=== PATIENT | male | born 1965 | race Caucasian/White ===

== ENCOUNTER 2019-10-06 09:09 | Emergency (ER) | payer BC, OTHER ==
[~2019-10-06] VITALS: Ht 172 cm; Wt 79.5 kg
[~2019-10-06 09:09] MED LIST: TRIA1CAP
[2019-10-06] MEDS ORDERED: KETOROLAC 30 MG/ML VIAL IVP STA (09:16)
[2019-10-06] MEDS ORDERED: LACTATED RINGERS 1,000 ML IV ONE (09:16)
[2019-10-06] MEDS ORDERED: ONDANSETRON 4 MG/2 ML (SDV) Z0FRAN ONE (09:17)
--- NOTE | 2019-10-06 09:26 | ED GU-Male ---
General Stated Complaint: L SIDE PAIN Source: patient History of Present Illness Date Seen by Provider: Oct 06, 2019 Time Seen by Provider: 09:15 Initial Comments PT ARRIVES VIA POV FROM HOME C/O LEFT FLANK AND LLQ PAIN SINCE 199 THIS AM HAS HISTORY OF KIDNEY STONES AND THIS FEELS THE SAME. HAD 1 REMOVED BY STONE BASKET, HAS PASSED ALL OTHERS ON HIS OWN HAS BEEN ON MAXZIDE SINCE 1997 LAST VOID WAS AT 0600, HAD LLQ PAIN ON URINATING NO FEVER + NAUSEA, NO VOMITING HAS NOT TAKEN ANYTHING FOR PAIN PCP: PT IS NON GARMENT SEWING MACHINE OPERATOR AT [employer] UROLOGIST: DR. DAVIS Allergies and Home Medications Allergies Coded Allergies: Ibuprofen (Unverified Allergy, Mild, 12/03/08) Penicillins (Unverified Allergy, Mild, 12/03/08) Home Medications Ciprofloxacin HCl 500 Mg Tablet, 500 MG PO BID Prescribed by: LARRY GARZA on 10/06/19 110 Ketorolac Tromethamine 10 Mg Tablet, 10 MG PO Q6H Prescribed by: LARRY GARZA on 10/06/19 110 Ondansetron 8 Mg Tab.rapdis, 8 MG PO Q6H Prescribed by: LARRY GARZA on 10/06/19 110 Tamsulosin HCl 0.4 Mg Cap, 0.4 MG PO DAILY Prescribed by: LARRY GARZA on 10/06/19 110 Patient Home Medication List Home Medication List Reviewed: Yes Review of Systems Review of Systems Constitutional: no symptoms reported Respiratory: no symptoms reported Cardiovascular: no symptoms reported Gastrointestinal: see HPI, abdominal pain Genitourinary: see HPI, flank pain Musculoskeletal: see HPI, back pain Skin: no symptoms reported Psychiatric/Neurological: No Symptoms Reported Endocrine: No Symptoms Reported Hematologic/Lymphatic: No Symptoms Reported Past Yjevtqv-Virkxx-Xyivsv Hx Past Med/Social Hx: Reviewed and Corrections made Patient Social History Recent Foreign Travel: No Past Medical History Surgeries: Yes (KINDEY STONE BASKET REMOVAL) Renal Respiratory: No Cardiac: Yes High Cholesterol Neurological: No Genitourinary: Yes Kidney Stones Gastrointestinal: No Musculoskeletal: No Endocrine: No HEENT: No Cancer: No Psychosocial: Yes Anxiety Integumentary: No Blood Disorders: No Physical Exam Vital Signs Vital Signs - First Documented 10/06/19 09:10 Pulse 79 Resp 16 B/P (MAP) 148/98 (115) Pulse Ox 98 O2 Delivery Room Air Capillary Refill : Height, Weight, BMI Height: '" Weight: lbs. oz. kg; BMI Method: General Appearance: WD/WN, other (LOOKS UNCOMFORTABLE--UNABLE TO SIT OR LAY STILL. ) Cardiovascular: regular rate, rhythm, no murmur Respiratory: normal breath sounds Gastrointestinal: normal bowel sounds, non tender, soft, no organomegaly Back: CVA tenderness (L) Extremities: normal inspection Neurologic/Psychiatric: no motor/sensory deficits, alert, oriented x 3 Skin: normal color, warm/dry; No rash Progress/Results/Core Measures Suspected Sepsis SIRS Temperature: Pulse: Respiratory Rate: Laboratory Tests 10/06/19 09:17: White Blood Count 12.7H Blood Pressure / Mean: Laboratory Tests 10/06/19 09:17: Creatinine 1.32H, Platelet Count 331, Total Bilirubin 0.6 Results/Orders Lab Results Laboratory Tests Test 10/06/19 09:17 10/06/19 10:00 Range/Units White Blood Count 12.7 H 4.3-11.0 10^3/uL Red Blood Count 5.66 4.35-5.85 10^6/uL Hemoglobin 16.4 13.3-17.7 G/DL Hematocrit 49 40-54 % Mean Corpuscular Volume 86 80-99 FL Mean Corpuscular Hemoglobin 29 25-34 PG Mean Corpuscular Hemoglobin Concent 34 32-36 G/DL Red Cell Distribution Width 14.9 H 10.0-14.5 % Platelet Count 331 130-400 10^3/uL Mean Platelet Volume 9.7 7.4-10.4 FL Neutrophils (%) (Auto) 64 42-75 % Lymphocytes (%) (Auto) 24 12-44 % Monocytes (%) (Auto) 10 0-12 % Eosinophils (%) (Auto) 1 0-10 % Basophils (%) (Auto) 0 0-10 % Neutrophils # (Auto) 8.2 H 1.8-7.8 X 10^3 Lymphocytes # (Auto) 3.1 1.0-4.0 X 10^3 Monocytes # (Auto) 1.3 H 0.0-1.0 X 10^3 Eosinophils # (Auto) 0.1 0.0-0.3 10^3/uL Basophils # (Auto) 0.0 0.0-0.1 10^3/uL Sodium Level 141 135-145 MMOL/L Potassium Level 3.8 3.6-5.0 MMOL/L Chloride Level 106 98-107 MMOL/L Carbon Dioxide Level 23 21-32 MMOL/L Anion Gap 12 5-14 MMOL/L Blood Urea Nitrogen 17 7-18 MG/DL Creatinine 1.32 H 0.60-1.30 MG/DL Estimat Glomerular Filtration Rate 56 BUN/Creatinine Ratio 13 Glucose Level 131 H 70-105 MG/DL Calcium Level 9.4 8.5-10.1 MG/DL Corrected Calcium 9.2 8.5-10.1 MG/DL Total Bilirubin 0.6 0.1-1.0 MG/DL Aspartate Amino Transf (AST/SGOT) 31 5-34 U/L Alanine Aminotransferase (ALT/SGPT) 66 H 0-55 U/L Alkaline Phosphatase 90 40-136 U/L Total Protein 7.3 6.4-8.2 GM/DL Albumin 4.3 3.2-4.5 GM/DL Urine Color YELLOW Urine Clarity CLEAR Urine pH 6.0 5-9 Urine Specific [place] 1.020 1.016-1.022 Urine Protein NEGATIVE NEGATIVE Urine Glucose (UA) NEGATIVE NEGATIVE Urine Ketones NEGATIVE NEGATIVE Urine Nitrite NEGATIVE NEGATIVE Urine Bilirubin NEGATIVE NEGATIVE Urine Urobilinogen 0.2 < = 1.0 MG/DL Urine Leukocyte Esterase NEGATIVE NEGATIVE Urine RBC (Auto) 1+ H NEGATIVE Urine RBC RARE /HPF Urine WBC 0-2 /HPF Urine Crystals NONE /LPF Urine Bacteria TRACE /HPF Urine Casts NONE /LPF Urine Mucus NEGATIVE /LPF Urine Culture Indicated NO My Orders Orders - LARRY GARZA DO Ed Iv/Invasive Line Start (10/06/19 09:16) Ct Abd/Pelvis Wo(Kidney Stone) (10/06/19 09:16) Abdomen/Kub 1view (10/06/19 09:16) Cbc With Automated Diff (10/06/19 09:16) Comprehensive Metabolic Panel (10/06/19 09:16) Ua Culture If Indicated (10/06/19 09:16) Ed Iv/Invasive Line Start (10/06/19 09:16) Lactated Ringers (Lr 1000 Ml Iv Solution (10/06/19 09:16) Ketorolac Injection (Toradol Injection) (10/06/19 09:16) Ondansetron Injection (Zofran Injectio (10/06/19 09:30) Ondansetron Injection (Zofran Injectio (10/06/19 09:17) Medications Given in ED Current Medications Medications Dose Ordered Sig/Jesus Route Start Time Stop Time Status Last Admin Dose Admin Lactated Ringer's 1,000 ml @ 0 mls/hr Q0M ONCE IV 10/06/19 09:16 10/06/19 09:18 DC 10/06/19 09:27 1,000 MLS/HR Ondansetron HCl 8 mg ONCE ONCE IVP 10/06/19 09:30 10/06/19 09:31 DC 10/06/19 09:25 8 MG Vital Signs/I&O 10/06/19 09:10 Pulse 79 Resp 16 B/P (MAP) 148/98 (115) Pulse Ox 98 O2 Delivery Room Air Capillary Refill : Progress Note : Progress Note SYMPTOMS COMPLETELY RELIEVED WITH TORADOL AND ZOFRAN DECLINES RX FOR HYDROCODONE, ETC. Diagnostic Imaging Comments KUB--2X10 MM CALCIFICATION TO LEFT OF L4, PER RADIOLOGIST REPORT AT 1043 CT ABDOMEN/PELVIS--4 MM STONE LEFT MID URETER, WITH MILD LEFT HYDRONEPHROSIS, PER RADIOLOGIST REPORT AT 1100 Reviewed: Reviewed by Me Departure Impression Primary Impression: Left ureteral calculus Disposition: HOME, SELF-CARE Condition: Improved Departure-Patient Inst. Referrals: NO,LOCAL PHYSICIAN (PCP) Primary Care Physician KATHERIN DAVIS MD Patient Instructions: Kidney Stones (DC) Add. Discharge Instructions: STRAIN ALL URINE--RETURN ANY STONES TO DR. DAVIS'S OFFICE RETURN TO ER IF SYMPTOMS WORSEN FOLLOW UP WITH DR. DAVIS ON TUESDAY FOR FURTHER CARE Scripts Tamsulosin HCl (Flomax) 0.4 Mg Cap 0.4 MG PO DAILY, #10 CAP Prov: KAYLA,LARRY K DO 10/06/19 Ondansetron (Ondansetron Odt) 8 Mg Tab.rapdis 8 MG PO Q6H for Nausea/Vomiting, #10 TAB Prov: KAYLA,LARRY K DO 10/06/19 Ketorolac Tromethamine (Ketorolac Tromethamine) 10 Mg Tablet 10 MG PO Q6H for Pain, #15 TAB Prov: KAYLA,LARRY K DO 10/06/19 Ciprofloxacin HCl (Cipro) 500 Mg Tablet 500 MG PO BID, #20 TAB Prov: LARRY GARZA DO 10/06/19 LARRY GARZA DO Oct 06, 2019 09:26
[2019-10-06] MEDS ORDERED: ONDANSETRON 4 MG/2 ML (SDV) Z0FRAN IVP ONE (09:30)
[2019-10-06 09:38] LABS: BASOPHILS % (AUTO) 0 % (0-10); EOSINOPHILS # (AUTO) 0.1 10^3/uL (0.0-0.3); EOSINOPHILS % (AUTO) 1 % (0-10); HEMATOCRIT 49 % (40-54); HEMOGLOBIN 16.4 G/DL (13.3-17.7); LYMPHOCYTES # (AUTO) 3.1 X 10^3 (1.0-4.0); LYMPHOCYTES % (AUTO) 24 % (12-44); MEAN CORPUSCULAR HEMOGLOBIN 29 PG (25-34); MEAN CORPUSCULAR HGB CONC 34 G/DL (32-36); MEAN CORPUSCULAR VOLUME 86 FL (80-99); MEAN PLATELET VOLUME 9.7 FL (7.4-10.4); MONOCYTES # (AUTO) 1.3 X 10^3 (0.0-1.0); MONOCYTES % (AUTO) 10 % (0-12); NEUTROPHILS # (AUTO) 8.2 X 10^3 (1.8-7.8); NEUTROPHILS % (AUTO) 64 % (42-75); PLATELET COUNT 331 10^3/uL (130-400); RED CELL DISTRIBUTION WIDTH 14.9 % (10.0-14.5); WHITE BLOOD COUNT 12.7 10^3/uL (4.3-11.0)
--- NOTE | 2019-10-06 09:38 | NUR ---
DR IN WITH PT ET STATES HE IS FEELING BETTER AFTER THE TORADOL.
[2019-10-06 09:45] LABS: ALBUMIN 4.3 GM/DL (3.2-4.5); BILIRUBIN,TOTAL 0.6 MG/DL (0.1-1.0); CALCIUM 9.4 MG/DL (8.5-10.1); CREATININE SERUM 1.32 MG/DL (0.60-1.30); POTASSIUM 3.8 MMOL/L (3.6-5.0); TOTAL PROTEIN 7.3 GM/DL (6.4-8.2)
[2019-10-06 10:15] LABS: BILIRUBIN,URINE NEGATIVE (NEGATIVE); CLARITY,URINE CLEAR; COLOR,URINE YELLOW; GLUCOSE, URINE (UA) NEGATIVE (NEGATIVE); KETONES,URINE NEGATIVE (NEGATIVE); LEUKOCYTE ESTERASE ,URINE NEGATIVE (NEGATIVE); NITRITE,URINE NEGATIVE (NEGATIVE); PROTEIN,URINE NEGATIVE (NEGATIVE)
[2019-10-06 10:22] LABS: BACTERIA,URINE TRACE /HPF; RBC,URINE RARE /HPF; WBC,URINE 0-2 /HPF
--- NOTE | 2019-10-06 10:28 | Diagnostic Imaging Report ---
INDICATION: Left flank pain A supine view of the abdomen was performed. The diaphragms were not visualized on this study. The bowel gas pattern is within normal limits. There is a 2 x 10 mm calcific density seen adjacent to the transverse process of L4 on the left. Does not have a typical appearance of a calculus but one cannot totally be excluded. No other urinary tract calcifications are evident. There are calcifications in the pelvis consistent with phleboliths. There is no acute bony abnormality. IMPRESSION: There is a 2 x 10 mm calcification adjacent to the transverse process of L4 on the left. If pain persists and further evaluation is felt necessary, CT may be helpful. Dictated by: Dictated on workstation # [id number]
--- NOTE | 2019-10-06 10:40 | NUR ---
PT STATES HE IS FEELING BETTER. DENIES NEEDS AT THIS TIME.
--- NOTE | 2019-10-06 10:55 | Diagnostic Imaging Report ---
PROCEDURE: CT urinary tract, rule out kidney stone. TECHNIQUE: Multiple contiguous axial images were obtained through the abdomen and pelvis without the use of intravenous contrast. Auto Exposure Controls were utilized during the CT exam to meet ALARA standards for radiation dose reduction. INDICATION: Left flank pain. COMPARISON: 12/03/2008. DISCUSSION: The lung bases are unremarkable. Normal heart size. No pleural or pericardial fluid. The gallbladder, liver, stomach, pancreas, spleen, and adrenal glands are unremarkable. Chronic induration of the central mesenteric root where shotty-appearing adenopathy is stable and consistent with a chronic inflammatory process, typically incidental. There is no renal stone or hydronephrosis within the right kidney. There is a 4 mm stone within the mid left ureter contributing to mild left hydronephrosis. Bladder and prostate are unremarkable. The large and small bowel loops appear within normal limits. No evidence for appendicitis. The aorta is normal in caliber. No ascites. No acute osseous abnormality identified. IMPRESSION: 1. 4 mm stone within the mid left ureter with mild left hydronephrosis. Dictated by: Dictated on workstation # [id number]
--- NOTE | 2019-10-06 11:00 | NUR ---
IN ROOM AT THIS TIME.
[2019-10-06] MEDS ORDERED: KETO10TA PO (11:05)
[2019-10-06] MEDS ORDERED: TMSL.4C PO (11:05)
[2019-10-06] MEDS ORDERED: CIPR-225 PO (11:05)
[2019-10-06] MEDS ORDERED: ONDA8TAB13 PO (11:05)
[2019-10-06 11:10] VITALS: BP 148/98
== END 2019-10-06 11:10 | disposition home or self-care (01) ==
LOC: EDUNIT# 09:09 → ER 09:10
DX: N13.2 Hydronephrosis with renal and ureteral calculous obstruction (principal); Z88.6 Allergy status to analgesic agent; Z88.0 Allergy status to penicillin
CPT/HCPCS: 36415; 74018; 74176; 80053; 81000; 85025; 96361; 96374; 96375

== ENCOUNTER 2019-10-08 15:08 | Outpatient (CLI) | payer OTHER ==
[~2019-10-08] VITALS: Ht 172 cm; Wt 79.5 kg
[~2019-10-08 15:08] MED LIST changes: -ATOR20TA66 PO; -FLUO40CA PO; -NITR-65 PO; -TRIA1CAP4 PO; -TRM50T PO
[2019-10-08] MEDS ORDERED: ATOR20TA66 PO (15:20)
[2019-10-08] MEDS ORDERED: FLUO40CA PO (15:20)
[2019-10-08] MEDS ORDERED: TRIA1CAP4 PO (15:20)
[2019-10-09] MEDS ORDERED: NITR-65 PO (11:40)
[2019-10-09] MEDS ORDERED: TRM50T PO (11:40)
== END 2019-10-08 15:46 | disposition home or self-care (01) ==
LOC: PREOP 15:08
PROVIDERS: ATTEND Urology
DX: Z01.818 Encounter for other preprocedural examination (principal)

== ENCOUNTER → 2019-10-08 | Outpatient (CLI) | payer OTHER ==
[~2019-10-08] MED LIST changes: +ATOR20TA66 PO; +CIPR-225 PO; +FLUO40CA PO; +KETO10TA PO; +NITR-65 PO; +ONDA8TAB13 PO; +TMSL.4C PO; +TRIA1CAP4 PO; +TRM50T PO
--- NOTE | 2019-10-08 13:48 | Diagnostic Imaging Report ---
INDICATION: Ureteral stone. FINDINGS: Note is again made of calcification adjacent to the left L4 transverse process. This is essentially unchanged when compared to the prior exam. This again measures 2 x 10 mm. IMPRESSION: Unchanged mid left ureteral stone. Dictated by: Dictated on workstation # [id number]
== END ==
LOC: RAD 13:31
PROVIDERS: ATTEND Urology
DX: N20.1 Calculus of ureter (principal)
CPT/HCPCS: 74018

== ENCOUNTER 2019-10-09 07:23 | Day surgery (SDC) | payer OTHER ==
[2019-10-09] VITALS (9 sets, daily range): BP systolic 104–145; BP diastolic 74–100
[~2019-10-09] VITALS: Ht 172 cm; Wt 79.5 kg
[~2019-10-09 07:23] MED LIST changes: +ATOR20TA66 PO; +FLUO40CA PO; +TRIA1CAP4 PO
[2019-10-09] MEDS ORDERED: LEVOFLOXACIN 250 MG/50 ML IVPB 50 ML IV ONE (07:45)
--- NOTE | 2019-10-09 07:56 | Progress Note-Pre Operative ---
Pre-Operative Progress Note H&P Reviewed The H&P was reviewed, patient examined and no changes noted. Date Seen by Provider: Oct 09, 2019 Time Seen by Provider: 07:56 Date H&P Reviewed: Oct 09, 2019 Time H&P Reviewed: 07:56 Pre-Operative Diagnosis: LT PROXIMAL URETERAL STONE KATHERIN DAVIS MD Oct 09, 2019 07:56
--- NOTE | 2019-10-09 07:58 | Diagnostic Imaging Report ---
INDICATION: Pre-ESWL, left ureteral stone. Compared with radiograph one day prior. FINDINGS: An elongated stone along the course of the left ureter measures a length of 9.7 mm and is between the 3rd and 4th lumbar left-sided transverse process tips. Pelvic phleboliths unchanged. The bowel gas pattern normal. IMPRESSION: Left ureteral calculus positioned as described unchanged from prior. Dictated by: Dictated on workstation # [id number]
[2019-10-09] MEDS ORDERED: LACTATED RINGERS 1,000 ML IV PRN (08:06)
[2019-10-09] MEDS ORDERED: MIDAZOLAM 2 MG/2 ML (VERSED) VIAL ONE (09:23)
[2019-10-09] MEDS ORDERED: fentaNYL INJECTION 100 MCG/2 ML AMP ONE (09:23)
[2019-10-09] MEDS ORDERED: LIDOCAINE PF 2% 5 ML (XYLOCAINE) VIAL ONE (09:26)
[2019-10-09] MEDS ORDERED: FUROSEMIDE 40 MG/4 ML INJ (LASIX) ONE (09:26)
[2019-10-09] MEDS ORDERED: proPOfol 200 MG/20 ML (DIPRIVAN) VIAL IV ONE (09:26)
[2019-10-09] MEDS ORDERED: SEVOFLURANE (ULTANE) 15 ML INHAL SOLN ONE ×3 (09:26→10:13)
[2019-10-09] MEDS ORDERED: KETOROLAC 30 MG/ML VIAL ONE (09:26)
[2019-10-09] MEDS ORDERED: ONDANSETRON 4 MG/2 ML (SDV) Z0FRAN ONE (09:26)
--- NOTE | 2019-10-09 09:56 | Progress Note-Post Operative ---
Post-Operative Progess Note Surgeon (s)/Automatic Presser (s) Surgeon KATHERIN DAVIS MD Automatic Presser: NONE Pre-Operative Diagnosis LT PROXIMAL URETERAL STONE Post-Operative Diagnosis SAME Procedure & Operative Findings Date of Procedure 10/09/19 Procedure Performed/Findings LT ESWL Anesthesia Type GENERAL Estimated Blood Loss Estimated blood loss (mL): NONE Specimens/Packing Specimens Removed NONE Packing: NONE KATHERIN DAVIS MD Oct 09, 2019 09:56
--- NOTE | 2019-10-09 09:59 | Discharge Inst-Urology ---
Discharge Inst-Urology Reconcile Patient Problems Problems Reviewed?: Yes Final Diagnosis LT PROXIMAL URETERAL STONE Patient Instructions/Follow Up Plan/Assessment/Instructions Please make appointment to been seen in office Sunday 10/22, KUB prior to it KUB on way home Post ESWL instructions Increase oral fluids for 48 hours and then as needed. Diet and Activity as tolerated. If questions or concerns contact your physician Or seek help at emergency department. KATHERIN DAVIS MD Oct 09, 2019 09:59
--- NOTE | 2019-10-09 10:29 | Anesthesia-General Post-Op ---
General Patient Condition Mental Status/LOC: Same as Preop Cardiovascular: Satisfactory Nausea/Vomiting: Absent Respiratory: Satisfactory Pain: Controlled Complications: Absent Post Op Complications Complications None Follow Up Care/Instructions Patient Instructions None needed. Anesthesia/Patient Condition Patient Condition Patient is doing well, no complaints, stable vital signs, no apparent adverse anesthesia problems. No complications reported per nursing. RODDY CERNA CRNA Oct 09, 2019 10:29
[2019-10-09] MEDS ORDERED: ONDANSETRON 4 MG/2 ML (SDV) Z0FRAN IVP PRN (10:30)
[2019-10-09] MEDS ORDERED: morphine INJ 10 MG/ML 1ML (SYR OR VIAL) IVP ONE (10:30)
[2019-10-09] MEDS ORDERED: NITR-65 PO (11:40)
[2019-10-09] MEDS ORDERED: TRM50T PO (11:40)
--- NOTE | 2019-10-09 12:42 | Diagnostic Imaging Report ---
INDICATION: Ureteral stone. Comparison is made with prior examination earlier the same day. FINDINGS: There are two persistent stone fragments in the region of the proximal left ureter just above the left L4 transverse process. Bowel gas pattern is otherwise nonspecific. There are multiple calcified phleboliths in the pelvis. IMPRESSION: Two persistent stone fragments in the proximal left ureter. Dictated by: Dictated on workstation # [id number]
--- NOTE | 2019-10-09 14:26 | OPERATIVE REPORT ---
DATE OF SERVICE: 10/09/2019 PREOPERATIVE DIAGNOSIS: Left proximal ureteral stone. POSTOPERATIVE DIAGNOSIS: Left proximal ureteral stone. OPERATION PERFORMED: Left ESWL. SURGEON: Alberto Davis MD ANESTHESIA: General. COMPLICATIONS: None. DESCRIPTION OF PROCEDURE: Under satisfactory general anesthesia, the patient in supine position on the ESWL table, the left proximal ureteral stone was localized. Shocks were delivered at kV of 6, a total of 3000 shocks fragmented the stone very nicely. The patient received 40 mg of Lasix at the end of the procedure. He tolerated the procedure and anesthesia well and was sent to recovery room in stable condition. Job ID: [id number] DocumentID: [id number] Dictated Date: 10/09/2019 10:16:59 Business Intelligence Director Date: 10/09/2019 14:25:40 Dictated By: ALBERTO DAVIS MD
== END 2019-10-09 12:40 | disposition home or self-care (01) ==
LOC: SDC 07:23
PROVIDERS: ATTEND Urology
DX: N20.1 Calculus of ureter (principal); I10 Essential (primary) hypertension; E78.5 Hyperlipidemia, unspecified; F41.9 Anxiety disorder, unspecified; Z88.0 Allergy status to penicillin; Z88.6 Allergy status to analgesic agent; Z79.899 Other long term (current) drug therapy
CPT/HCPCS: 74018; 74019; 87081

== ENCOUNTER 2019-11-29 07:15 | Outpatient (RCR) | payer OTHER ==
[~2019-11-29 07:15] MED LIST changes: +NITR-65 PO; +TRM50T PO
--- NOTE | 2019-11-29 07:56 | Diagnostic Imaging Report ---
INDICATION: Ureteral stone. Comparison made with prior examination from 10/09/19. 2 views were obtained. FINDINGS: Bowel gas pattern is nonspecific. There are some calcified phleboliths in the pelvis which are unchanged. Osseous structures are unremarkable. There are no abnormal calcifications projected over either kidney. IMPRESSION: Nonspecific bowel gas pattern. Dictated by: Dictated on workstation # [id number]
== END 2020-02-27 | disposition home or self-care (01) ==
LOC: RAD 07:15 → EDSTATUS 07:18
PROVIDERS: ATTEND Urology
DX: N20.1 Calculus of ureter (principal); Z98.890 Other specified postprocedural states
CPT/HCPCS: 36415; 74018; 82140; 82340; 82507; 82570; 83735; 83945; 83986; 84105; 84133; 84300; 84392; 84560